=== PATIENT | male | born 1980 | race Caucasian/White ===

== ENCOUNTER 2021-02-15 19:29 | Emergency (ER) | payer OTHER ==
[~2021-02-15] VITALS: Ht 177.8 cm; Wt 102.1 kg
[2021-02-15 19:52] VITALS: BP 114/75
--- NOTE | 2021-02-15 19:52 | NUR ---
TO BED AMBULATORY
--- NOTE | 2021-02-15 20:09 | NUR ---
40 YO/M BIBS W CO OF R FOOT ANKLE PAIN W SWELLING X1 DAY 01/30 ACHEING CONSTANT WORSENS W TOUCH. PATIENT DENIES ANY INJURY. SLIGHT SWELLING AND REDNESS NOTED TO R ANKLE. SENSATION PRESENT BILATERAL FEET, +2 PEDAL PULSES, CAP REFILL <3 SEC. PATIENT ALSO REPORTS A COUGH FOR A FEW DAYS, SON'S SICK W COUGH WELL. PATIENT LAYING IN BED LOCKED IN LOWEST POSITION, BREATHING EVEN AND UNLABORED. NAD NOTED, WILL CONTINUE TO MONITOR. PMH:DENIES NKA
--- NOTE | 2021-02-15 20:44 | NUR ---
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
--- NOTE | 2021-02-15 20:48 | NUR ---
PATIENT REFUSED 1 TAB OF 325MG, 650MG ADMNINISTERED
[2021-02-15] MEDS: ACETAMINOPHEN 325 MG TAB PO ONE (20:55)
[2021-02-15 22:03] VITALS: BP 114/75
--- NOTE | 2021-02-15 22:03 | NUR ---
Patient discharged with v/s stable. Written and verbal after care instructions given and explained. Patient verbalized understanding. Ambulatory with steady gait. All questions addressed prior to discharge. Advised to follow up with PMD.
== END 2021-02-15 22:03 | disposition home or self-care (01) ==
LOC: MED 19:29
DX: M77.31 Calcaneal spur, right foot (principal); Z20.822 Contact with and (suspected) exposure to COVID-19
CPT/HCPCS: 73610; 99284; Q0092; U0003

== ENCOUNTER 2023-04-25 22:06 | Emergency (ER) | payer SELFPAY | END 2023-04-25 22:35 | disposition left against medical advice (07) | LOC: MED 22:06 | DX: M54.50 Low back pain, unspecified (principal); Z53.21 Procedure and treatment not carried out due to patient leaving prior to being seen by health care provider ==